=== PATIENT | female | born 1950 | race Caucasian/White ===

== ENCOUNTER 2017-04-23 13:22 | Inpatient (IN) | payer MEDICARE, OTHER ==
[~2017-04-23] VITALS: Ht 162.6 cm; Wt 52.2 kg
[2017-04-23] MEDS ORDERED: DICYCLOMINE HCL 20 MG TABLET PO PRN (15:00)
[2017-04-23] MEDS ORDERED: LOPERAMIDE HCL 2 MG CAPSULE PO PRN ×2 (15:00)
[2017-04-23] MEDS ORDERED: PROMETHAZINE HCL 25 MG TABLET PO PRN (15:00)
[2017-04-23] MEDS ORDERED: ONDANSETRON 4 MG/2 ML VIAL IM PRN (15:00)
[2017-04-23] MEDS ORDERED: LORAZEPAM 1 MG TABLET PO PRN ×2 (15:00)
[2017-04-23] MEDS ORDERED: LORAZEPAM 2 MG/1 ML VIAL IM PRN (15:00)
[2017-04-23] MEDS ORDERED: THIAMINE HCL 200 MG/2 ML VIAL IM ONE ×2 (15:00→16:01)
[2017-04-23] MEDS ORDERED: MAG HYDROX/AL HYDROX/SIMETH 30 ML LIQUID UDC PO PRN (15:00)
[2017-04-23] MEDS ORDERED: MIRALAX 17 GM POWD.PACK PO PRN (15:00)
[2017-04-23] MEDS ORDERED: MAGNESIUM HYDROXIDE 30 ML LIQUID UDC PO PRN (15:00)
[2017-04-23] MEDS ORDERED: ONDANSETRON ODT 4 MG TAB.RAPDIS SL PRN (15:00)
[2017-04-23] MEDS ORDERED: diphenhydrAMINE 50 MG CAPSULE PO PRN (15:00)
--- NOTE | 2017-04-23 15:00 | NUR ---
PREADMISSION Pt 66 y/o female admitted for opiate , etoh, and benzo withdrawal. Pt came from [facility]. Pt states lives at home with . Pt alert and oriented to name and time. Perrla. Respirations even and unlabored. Pt frequently closes eyes and has to be aroused. Skin warm and moist to touch. VS np=184/80 t=98.7 p=80 r=16 O2= 88-90% @RA. Pt was evaluated by MD in admission office, and with new orders for O2 therapy to titrate O2= >/=92%, noted and carried out. Pt not able to provide complete history. Educated pt on unit rules.
--- NOTE | 2017-04-23 15:05 | NUR ---
ADMISSION Pt 66 y/o female admitted for opiate , etoh, and benzo withdrawal. Pt came from [facility]. Pt states lives at home with . Pt alert and oriented to name and time. Perrla. Respirations even and unlabored. Pt appears disheveled and unkempt. Pt frequently closes eyes and has to be aroused. Skin warm and moist to touch. Bruising noted on multiple sites scattered throughout both lower arms and BLE. Not able to assess pt at this time, as pt closes eyes frequently, but arousable to name and light touch. Pt stated ," I felt nauseated", as a response to reason for admission. Pt did not provide the name of her PMD. Pt unable to provide information on when her last sobriety period was. Oriented pt to room and unit. Pt was seen by MD and started on subutex prn and ativan prn. Substance hx: Etoh Vodka oral 1/2 bottle daily for unspecified months. Last drink 1 shot on 04/22/17. Subutex SL 2-3 tabs daily for unspecified months. Last took 04/23/17 1 tab. Ativan po 2 pills 3 days a week for unspecified time. Last took 04/23/17 2 pills. Medical hx: Htn, lower back and left hip chronic pain, left hips surgery ( pt unable to provide date), chrohn's disease Treatment hx: Corinne sweeney 2004 Addendum: 04/23/17 at 1939 by NICK CANNON RN ADDITIONAL Ciwa/ cows deferred. Pt occasionally closes eyes. Addendum: 04/23/17 at 1939 by NICK CANNON RN additional Pt is 1:1 sitter to monitor for safety.
[2017-04-23 16:00] VITALS: BP 130/73
--- NOTE | 2017-04-23 16:00 | NUR ---
CIWA/ COWS DEFERRED Pt in bed with eyes closed resting, but arousable to name. Not able to assess pt at this time. ciwa/cows deferred.
--- NOTE | 2017-04-23 16:00 | NUR ---
CIWA/COWS DEFERRED Ciwa/ cows deferred. Pt in bed with eyes closed resting, but arousable to name.
[2017-04-23] MEDS ORDERED: AZIT250T13 PO (16:02)
[2017-04-23] MEDS ORDERED: LOSA25TA13 PO (16:02)
[2017-04-23] MEDS ORDERED: BUPR1FIL3 SL (16:02)
[2017-04-23] MEDS ORDERED: BENZ-13 PO (16:02)
[2017-04-23] MEDS ORDERED: CLON0.1T PO (16:02)
[2017-04-23] MEDS ORDERED: ACYC400T PO (16:02)
[2017-04-23] MEDS ORDERED: DULO60CA45 PO (16:02)
[2017-04-23] MEDS ORDERED: BACL10TA PO (16:02)
[2017-04-23] MEDS ORDERED: LIDO30AD10 TD (16:02)
[2017-04-23] MEDS ORDERED: ONDA8TAB9 PO (16:02)
[2017-04-23] MEDS ORDERED: TRAZ-144 PO (16:02)
[2017-04-23] MEDS ORDERED: PANT40TA2 PO (16:02)
[2017-04-23] MEDS ORDERED: LACT10SO PO (16:02)
[2017-04-23] MEDS ORDERED: FOLI1TAB16 PO (16:02)
[2017-04-23] MEDS ORDERED: GABA-536 PO (16:02)
[2017-04-23] MEDS ORDERED: BUPRENORPHINE HCL 2 MG TAB.SUBL SL PRN (17:15)
[2017-04-23 17:50] LABS: *AMPHETAMINE, URINE NEGATIVE (NEGATIVE); *BARBITURATE, URINE NEGATIVE (NEGATIVE); *CANNABINOID, URINE NEGATIVE (NEGATIVE); *COCCAINE, URINE NEGATIVE (NEGATIVE); *OPIATE, URINE NEGATIVE (NEGATIVE); *PHENCYCLIDINE SCREEN,URINE NEGATIVE (NEGATIVE)
[2017-04-23 17:58] LABS: BASOPHILS # (AUTO) 0.1 K/uL (0.0-8.0); BASOPHILS % (AUTO) 0.6 % (0.0-2.0); EOSINOPHILS # (AUTO) 0.1 K/uL (0.0-0.7); EOSINOPHILS % (AUTO) 0.6 % (0.0-7.0); HEMATOCRIT 32.3 % (31.2-41.9); HEMOGLOBIN 10.1 g/dL (10.9-14.3); LYMPHOCYTES # (AUTO) 2.4 K/uL (20.0-40.0); LYMPHOCYTES % (AUTO) 16.2 % (20.5-51.5); MEAN CORPUSCULAR HEMOGLOBIN 25.8 uug (24.7-32.8); MEAN CORPUSCULAR HGB CONC 32 g/dL (32.3-35.6); MEAN CORPUSCULAR VOLUME 81.9 fL (75.5-95.3); MONOCYTES # (AUTO) 1.7 K/uL (2.0-10.0); MONOCYTES % (AUTO) 11.6 % (0.0-11.0); NEUTROPHILS # (AUTO) 10.4 K/uL (1.8-8.9); PLATELET COUNT (AUTO) 288 K/uL (179-408); RED BLOOD CELL COUNT(AUTO) 3.94 MIL/uL (3.63-4.92); WHITE BLOOD COUNT (AUTO) 14.6 K/uL (3.8-11.8)
[2017-04-23] MEDS ORDERED: ADAL40PE SUBCUT (17:58)
[2017-04-23 18:09] LABS: ETHANOL < 3 MG/DL (0-0)
[2017-04-23 18:15] LABS: ALANINE AMINOTRANSFERASE 29 U/L (14-59); ALKALINE PHOSPHATASE 218 U/L (50-136); AMYLASE 15 U/L (25-115); ASPARTATE AMINOTRANSFERASE 54 U/L (15-37); BILIRUBIN,TOTAL 0.5 mg/dL (0.2-1.0); CARBON DIOXIDE 33 mmol/L (21-32); CHLORIDE 101 mmol/L (98-107); CREATININE 0.6 mg/dL (0.6-1.3); GLUCOSE 110 mg/dL (74-106); LIPASE 58 U/L (73-393); MAGNESIUM 1.7 mg/dL (1.8-2.4); POTASSIUM 3.7 mmol/L (3.5-5.1); TOTAL PROTEIN, SERUM 6.7 g/dL (6.4-8.2); UREA NITROGEN, BLOOD 7 mg/dL (7-18)
--- NOTE | 2017-04-23 18:30 | NUR ---
NSG ENTRY Dr. Moses notified of cxr results and lab results with new order for IV zosyn ( pharmacy to dose), Mg sulfate 2gm IV, swallow eval in am, sputum culture, NPO status, and CBC BMP in am, noted and carried out.
[2017-04-23] MEDS ORDERED: PIPERACILLIN/TAZOBACTAM/D5W 50 ML IV SCH (18:45)
--- NOTE | 2017-04-23 19:30 | NUR ---
Start of Shift Pt is a 66 year old female admitted for opiate , etoh, and benzo withdrawal. Pt is on a 1:1 for safety. Upon assessment, pt is in room, appears unkempt, disheveled. Pt responds to name and time, however has to be aroused with name and light touch whenever questions are asked. Pt responds to most questions with, "I don't remember", or does not respond at all. Pt closes eyes frequently. Bruising is noted throughout body. Pt is incontinent, wears diapers. VTE 5, SCD pumps in use at bed side. Pt has non-productive cough, chest x-ray completed during days shift indicating pneumonia. Zosyn IV & Mg sulfate 2gm IV ordered. Pt is NPO -swallow evaluation to be done in am. BP 130/85, pulse 87, resp 16, SpO2 97% on 02 running at 2LPM via NC, temp 98.4. Sitter at bedside, safety measures in place, will continue to monitor.
[2017-04-23 20:00] VITALS: BP 130/85
--- NOTE | 2017-04-23 20:00 | NUR ---
COWS/CIWA Deferred d/t pt in bed resting with eyes closed, but arousable to name and light touch, but does not respond to assessment questions that are being asked. Pt falls back to sleep after name is a called. Sitter at bedside, safety measures in place, will continue to monitor.
--- NOTE | 2017-04-23 20:20 | NUR ---
IV/IVF IV started by ER nurse on right lower forearm, 22 G. IV patent, intact and flushing well. Zosyn IV & Mg sulfate 2gm IV started. Sitter at bedside, safety measures in place, will continue to monitor.
[2017-04-23] MEDS: PIPERACILLIN/TAZOBACTAM/D5W 50 ML IV SCH ×2 (20:59→23:51)
[2017-04-23] MEDS: MAGNESIUM SULFATE/D5W 100 ML IV SCH ×2 (21:53→22:30)
[2017-04-23] MEDS: TRAZODONE 50 MG TABLET PO SCH (22:00)
[2017-04-23] MEDS: MAGNESIUM CHLORIDE 64 MG TABLET.SA PO SCH (22:00)
--- NOTE | 2017-04-23 22:00 | NUR ---
Nursing Note Scheduled PO Medications non-administered d/t pt being on NPO status. Pt is scheduled for swallow evaluation tomorrow. MD thomson
[2017-04-24] VITALS: BP 145/80
[2017-04-24] MEDS ORDERED: LORAZEPAM 2 MG/1 ML VIAL IV PRN ×2
--- NOTE | 2017-04-24 | NUR ---
CIWA/COWS deferred d/t pt sleeping, to assess while pt is awake as ordered. BP 145/80, pulse 82, resp 17, Spo2 94% on 02 running at 2LPM via NC, temp 98.[address], will continue to monitor.
[2017-04-24 04:00] VITALS: BP 139/80
--- NOTE | 2017-04-24 04:00 | NUR ---
CIWA/COWS deferred d/t pt sleeping, to assess while pt is awake as ordered. BP 139/80, pulse 80, resp 16, Spo2 94% on 02 running at 2LPM via NC, temp 98.[address], will continue to monitor.
[2017-04-24] MEDS: PIPERACILLIN/TAZOBACTAM/D5W 50 ML IV SCH ×4 (06:16→23:50)
--- NOTE | 2017-04-24 07:10 | NUR ---
End of Shift Pt is a 66 year old female admitted for opiate , etoh, and benzo withdrawal. Pt is on a 1:1 for safety. During shift, pt stayed in room, unkempt, disheveled. Pt responds to name and time, however has to be aroused with name and light touch whenever questions are asked. Pt responds to most questions with, "I don't remember", or does not respond at all. Pt closes eyes frequently and returns back to sleep therefore unable to assess accurate score of CIWA/COWS. IV started by ER nurse on right lower forearm, 22 G. IV patent, intact and flushing well. Zosyn IV & Mg sulfate 2gm IV started. Scheduled PO Medications non-administered d/t pt being on NPO status. Pt is scheduled for swallow evaluation today. Sputum culture ordered, VTE 5, SCD pumps in use at bed side. Pt remains on O2 running at 2LPM via NC. Sitter at bedside, Pt slept for 9 hours, Pt remains on NPO, voids x1 and stool x0. Safety measures in place, endorsed to day shift nurse.
--- NOTE | 2017-04-24 07:45 | NUR ---
START OF SHIFT Endorse rcvd from ongoing nurse, client's room feels stuffy. Client is in bed in a position, a/o to name, place and situation, she presents anxious mood, flat affect, red, teary eyes, flushed face, fine tremors, clammy skin, she has difficulty concentrating. Client reports in a soft, shaky voice; abdominal cramps, feeling of panic, restless legs, nausea, and fatigue. Client is NPO, until seen by ST to assess swallow functioning and safe PO toleration. Hep lock 22G on R forearm. Client is on IV antibiotic therapy Zosyn 3.375mG IV Q6H for PNA. IPCD on and tolerating well. Client is on 1:1 for safety. Encourage client to participate in ADL and to attend group therapy for skills to maintain sober. Client slept 9 hrs. Seizure precautions rendered. Call light within reach.
[2017-04-24 08:07] LABS: CREATININE 0.6 mg/dL (0.6-1.3); POTASSIUM 3.7 mmol/L (3.5-5.1)
[2017-04-24 08:27] VITALS: BP 143/79
[2017-04-24] MEDS ORDERED: MULTIVITAMINS,THERAPEUTIC TABLET PO SCH (09:00)
[2017-04-24] MEDS ORDERED: THIAMINE HCL 100 MG TABLET PO SCH (09:00)
[2017-04-24] MEDS ORDERED: TUBERCULIN,PURIF.PROT.DERIV. 5 TU/0.1 ML TEST ID ONE (09:00)
[2017-04-24] MEDS ORDERED: FOLIC ACID 1 MG TABLET PO SCH (09:00)
[2017-04-24] MEDS ORDERED: hydrALAZINE HCL 20 MG/1 ML VIAL IV PRN (09:30)
[2017-04-24] MEDS ORDERED: IV D5W-0.45% NS 1000 ML BAG IV PRN (10:15)
--- NOTE | 2017-04-24 10:35 | NUR ---
Client refused TB test, stating she just got one not long ago.
[2017-04-24] MEDS: FOLIC ACID 1 MG TABLET PO SCH (10:36)
[2017-04-24] MEDS: MULTIVITAMINS,THERAPEUTIC TABLET PO SCH (10:37)
[2017-04-24] MEDS: MAGNESIUM CHLORIDE 64 MG TABLET.SA PO SCH ×2 (10:37→21:50)
[2017-04-24] MEDS: DULOXETINE 60 MG CAPSULE.DR PO SCH (10:37)
[2017-04-24] MEDS: DOCUSATE SODIUM 250 MG CAPSULE PO SCH (10:37)
--- NOTE | 2017-04-24 10:37 | NUR ---
PRN IV Ativan 2 mg wasted, client was screaming, "Take it out, take it out it's burning." MD and CN notified.
[2017-04-24] MEDS: THIAMINE HCL 100 MG TABLET PO SCH (10:38)
[2017-04-24] MEDS: IV D5 1/2 NS 1000 ML 1,000 ML IV PRN ×2 (10:38→23:50)
--- NOTE | 2017-04-24 10:38 | NUR ---
PRN IV D5% 1/2NS 125mL/hr for hydration. Client tolerating well
[2017-04-24] MEDS ORDERED: LORAZEPAM 1 MG TABLET PO ONE (11:00)
[2017-04-24] MEDS ORDERED: LORAZEPAM 1 MG TABLET PO PRN ×2 (11:15)
[2017-04-24] MEDS: LIDOCAINE 5% PATCH TD SCH (12:05)
[2017-04-24 12:55] VITALS: BP 138/80
[2017-04-24] MEDS: LORAZEPAM 1 MG TABLET PO SCH ×3 (13:33→21:50)
[2017-04-24] MEDS ORDERED: BUPRENORPHINE HCL 2 MG TAB.SUBL SL PRN (14:00)
[2017-04-24] MEDS: IBUPROFEN 400 MG TABLET PO PRN (14:55)
[2017-04-24] MEDS: ACETAMINOPHEN 325 MG TABLET PO PRN (14:55)
--- NOTE | 2017-04-24 14:55 | NUR ---
PRN Tylenol 650mg PO and Motrin 400mg PO administered for SALDANA pain level 7/10, client verbalized that the combination of medication works for her. Call light within reach.
--- NOTE | 2017-04-24 15:44 | NUR ---
Reassess PRN Tylenol 650mg PO and Motrin 400mg, ruchi reports relief from SALDANA pain level 0/10. Call light within reach.
[2017-04-24] MEDS: ACYCLOVIR 400 MG TABLET PO SCH (16:18)
[2017-04-24] MEDS: GABAPENTIN 400 MG CAPSULE PO SCH (16:18)
[2017-04-24 16:55] VITALS: BP 122/76
--- NOTE | 2017-04-24 19:23 | NUR ---
END OF SHIFT Endorsed client to incoming nurse, client is a/o x 4, she needs encouragement to attend group therapy, client remains isolated in her room due to withdrawal symptoms, she continues to present with anxious mood, flat affect, restless legs, fine tremors, and nausea. She continues on 1:1 for safety. D5%1/2ns 125mL/hr RUNNING, client tolerating well. Peripheral line 22G on R forearm intact. She consumed ~25% of meals. PRN Tylenol 650mg PO, Motrin 400mg PO for SALDANA, noted effective. Adequate PO fluid intake 1703mL, void x 1. Last CIWA 15/ COWS 9 @ 1600. Call light within reach.
[2017-04-24 20:00] VITALS: BP 137/76
--- NOTE | 2017-04-24 20:00 | NUR ---
Start of Shift Note Received 66 y/o female px admitted on for medically supervised withdrawals from ETOH, benzo and opiate. Px is on 3 day Ativan taper started 04/24/2017. Px tolerating well. Px has IVF of D5 half NS 1 L running at 125 ml/hr through a peripheral IV line inserted on right forearm. Px is on 1 to 1 for safety and unsteady gait. Px is on bed in long sitting position, eating her dinner. Px stated "My anxiety is 1/10". Px is disoriented to time. Bed on lowest position, and side rails up 2x. We'll continue to monitor.
--- NOTE | 2017-04-24 21:00 | NUR ---
IV site infiltrated Peripheral IV line inserted on right forearm discontinued and taken off due to infiltration. Warm and cold pack applied alternately on the site. We'll continue to monitor.
[2017-04-24] MEDS: TRAZODONE 50 MG TABLET PO SCH (21:50)
--- NOTE | 2017-04-24 23:15 | NUR ---
Peripheral IV line reinserted ER staff reinserted a peripheral IV line on right dorsal hand aseptically 22G with good blood back flow, flushed with 10 cc NS. Px tolerated well. We'll continue to monitor.
--- NOTE | 2017-04-24 23:45 | NUR ---
IVF restarted IVF D5 half NS 1 L started,and running at 125 ml/hr on a peripheral IV line inserted in right dorsal hand. We'll continue to monitor.
[2017-04-25] VITALS: BP 111/71
--- NOTE | 2017-04-25 | NUR ---
IV Zosyn Zosyn 3.375 G in 50 ml D5W IV started, and running for 50 ml/hr as a piggyback for main line IVF D5 half NS 1 L. We'll continue to monitor.
[2017-04-25 04:00] VITALS: BP 120/72
[2017-04-25] MEDS: PIPERACILLIN/TAZOBACTAM/D5W 50 ML IV SCH ×3 (06:00→17:42)
[2017-04-25] MEDS: PANTOPRAZOLE SODIUM 40 MG TABLET.DR PO SCH (06:42)
--- NOTE | 2017-04-25 07:30 | NUR ---
START OF SHIFT Endorse rcvd from ongoing nurse, client is in bed, a/o to name, place and situation, she presents anxious mood, flat affect, flushed face, gross tremors, clammy skin, she has difficulty concentrating. Client reports; abdominal cramps, feeling of panic, restless legs, nausea, and fatigue. Peripheral line 22G on R hand, Zosyn (PNA) running at prescribed rate. IPCD on and tolerating well. Client is on 1:1 for safety. Encourage client to participate in ADL and to attend group therapy for skills to maintain sober. Client slept 2 hrs. Seizure precautions rendered. Call light within reach.
--- NOTE | 2017-04-25 07:33 | NUR ---
End of Shift Note During the shift at 2100, peripheral IV line inserted on right forearm was discontinued and removed due to infiltration. At 2315 ER staff reinserted a peripheral IV line on right dorsal hand 22G aseptically. At 2345, IVF D5 half NS 1L started, running at 125 ml/hr. At 0000, Zosyn 3.375 G in 50 ml D5W hooked as a piggyback running at 50 ml/hr. Pxs oral intake is 300 ml, diaper wet changes 2x, No BM. Slept for intermittently 2 hours. At 0630, px asleep on bed in fowlers position. Last COWS 5 and CIWA 7. Bed on lowest position, and side rails up 2x. We'll continue to monitor. Px endorsed to AM shift nurse.
[2017-04-25 07:49] LABS: BASOPHILS # (AUTO) 0.1 K/uL (0.0-8.0); BASOPHILS % (AUTO) 0.7 % (0.0-2.0); EOSINOPHILS # (AUTO) 0.3 K/uL (0.0-0.7); EOSINOPHILS % (AUTO) 2.7 % (0.0-7.0); HEMATOCRIT 31.6 % (31.2-41.9); LYMPHOCYTES # (AUTO) 2.2 K/uL (20.0-40.0); LYMPHOCYTES % (AUTO) 22.2 % (20.5-51.5); MEAN CORPUSCULAR HGB CONC 32 g/dL (32.3-35.6); MEAN CORPUSCULAR VOLUME 82.4 fL (75.5-95.3); MONOCYTES # (AUTO) 1.5 K/uL (2.0-10.0); MONOCYTES % (AUTO) 15.3 % (0.0-11.0); NEUTROPHILS # (AUTO) 5.8 K/uL (1.8-8.9); NEUTROPHILS % (AUTO) 59.1 % (38.5-71.5); PLATELET COUNT (AUTO) 318 K/uL (179-408); RED BLOOD CELL COUNT(AUTO) 3.83 MIL/uL (3.63-4.92)
[2017-04-25 07:55] LABS: WHITE BLOOD COUNT (AUTO) 9.8 K/uL (3.8-11.8)
[2017-04-25 07:58] LABS: CREATININE 0.6 mg/dL (0.6-1.3); MAGNESIUM 1.7 mg/dL (1.8-2.4); PHOSPHOROUS 4.3 mg/dL (2.5-4.9)
[2017-04-25 08:06] LABS: HEPATITIS B SURFACE AG Negative (Negative)
[2017-04-25] MEDS: MULTIVITAMINS,THERAPEUTIC TABLET PO SCH (08:14)
[2017-04-25] MEDS: DULOXETINE 60 MG CAPSULE.DR PO SCH (08:14)
[2017-04-25] MEDS: FOLIC ACID 1 MG TABLET PO SCH (08:14)
[2017-04-25] MEDS: DOCUSATE SODIUM 250 MG CAPSULE PO SCH (08:14)
[2017-04-25] MEDS: GABAPENTIN 400 MG CAPSULE PO SCH ×3 (08:14→17:42)
[2017-04-25] MEDS: MAGNESIUM CHLORIDE 64 MG TABLET.SA PO SCH ×2 (08:15→21:44)
[2017-04-25] MEDS: ACYCLOVIR 400 MG TABLET PO SCH ×3 (08:15→17:42)
[2017-04-25] MEDS: LIDOCAINE 5% PATCH TD SCH (08:15)
[2017-04-25] MEDS: LORAZEPAM 1 MG TABLET PO SCH ×3 (08:15→21:44)
[2017-04-25] MEDS: THIAMINE HCL 100 MG TABLET PO SCH (08:15)
[2017-04-25] MEDS: CLONIDINE HCL 0.1 MG TABLET PO PRN (08:30)
--- NOTE | 2017-04-25 08:30 | NUR ---
PRN Clonidine 0.1mg for BP 181/97. Call light within reach
[2017-04-25 08:35] VITALS: BP 181/97
[2017-04-25] MEDS ORDERED: PANTOPRAZOLE SODIUM 40 MG TABLET.DR PO SCH (09:00)
[2017-04-25 09:19] LABS: EOSINOPHILS % (MANUAL) 3 % (0-8); LYMPHOCYTES % (MANUAL) 21 % (20-40); MONOCYTES % (MANUAL) 11 % (2-10); MYELOCYTES % 1 % (0-0); NEUTROPHILS % (MANUAL) 64 % (42-75)
--- NOTE | 2017-04-25 09:30 | NUR ---
Reassess PRN Clonidine decreased BP156/86.
[2017-04-25] MEDS: IV D5 1/2 NS 1000 ML 1,000 ML IV PRN (10:23)
--- NOTE | 2017-04-25 10:23 | NUR ---
PRN IV D5% 1/2NS 125mL/hr for hydration. Client tolerating well
[2017-04-25 12:55] VITALS: BP 177/95
[2017-04-25] MEDS ORDERED: hydrALAZINE HCL 25 MG TABLET PO ONE (13:00)
--- NOTE | 2017-04-25 13:09 | NUR ---
One time Hydralazine 25mg PO for BP 177/95.
[2017-04-25] MEDS ORDERED: hydrALAZINE HCL 25 MG TABLET PO PRN (14:00)
[2017-04-25] MEDS ORDERED: HUMIRA 40MG/0.8ML SQ SCH (14:00)
[2017-04-25] MEDS ORDERED: MAGNESIUM OXIDE 400 MG TABLET PO ONE (14:00)
[2017-04-25] MEDS ORDERED: hydrALAZINE HCL 25 MG TABLET PO SCH (14:00)
[2017-04-25] MEDS ORDERED: POTASSIUM CHLORIDE 20 MEQ TAB.PRT.SR PO ONE ×3 (14:00→18:00)
--- NOTE | 2017-04-25 14:09 | NUR ---
Reassess One time Hydralazine 25mg decreased BP 131/89
[2017-04-25 16:55] VITALS: BP 122/75
--- NOTE | 2017-04-25 19:26 | NUR ---
END OF SHIFT Endorsed client to incoming nurse, client is a/o x 3, she needs encouragement to attend group therapy, client remains isolated in her room due to withdrawal symptoms, she continues to present with anxious mood, flat affect, restless legs, gross tremors, and nausea. She continues on 1:1 for safety. D5%1/2ns 75mL/hr running, client tolerating well. Peripheral line 22G on R hand intact. She consumed ~25% of meals. PRN Clonidine 0.1mg for BP 181/97, decreased BP156/86. One time Hydralazine 25mg PO for BP 177/95, decreased to 131/89. Adequate PO fluid intake 1955mL, void x 1. Last CIWA 17/ COWS 11 @ 1600. Call light within reach.
--- NOTE | 2017-04-25 19:30 | NUR ---
Start of Shift Note Received 66 y/o female rogers, admitted on 04/23/2017 for medically supervised withdrawals from ETOH, Opiate and Benzo. Px appears weak. Px is on O2 inhalation at 3 LPM via NC. Px has IVF of D5 half NS running for 75 cc/hr via peripheral IV line inserted on right dorsal hand. Px stated that she just ate 2 bites of her dinner. Few drinks and dinner plate are still on the bed side table. Px verbalized "I can't sleep well, and my anxiety is 6/10 with body aches 5/10". VS as follows, BP= 138/98, KS= 88, RR= 18, O2sat= 96% and T= 99.9. Px is still on 1 to 1 for safety. Last reported COWS is 11 and CIWA 17 from AM shift nurse. Bed on lowest position, and side rails up 2x. We'll continue to monitor.
[2017-04-25 20:00] VITALS: BP 138/98
[2017-04-25] MEDS: ACETAMINOPHEN 325 MG TABLET PO PRN (20:10)
--- NOTE | 2017-04-25 20:10 | NUR ---
Tylenol PRN Tylenol 325 mg/tab, 2 tabs given PO as PRN for T= 99.9 and body aches. We'll continue to monitor.
[2017-04-25] MEDS: TRAZODONE 50 MG TABLET PO SCH (21:44)
[2017-04-26] VITALS (7 sets, daily range): BP systolic 120–173; BP diastolic 76–92
[2017-04-26] MEDS: PIPERACILLIN/TAZOBACTAM/D5W 50 ML IV SCH ×4 (00:07→17:19)
[2017-04-26] MEDS: IV D5 1/2 NS 1000 ML 1,000 ML IV PRN ×2 (01:24→16:39)
--- NOTE | 2017-04-26 01:24 | NUR ---
IVF IVF D5 half NS 1 L hooked as follow up running at 75 ml/hr to a peripheral IV line inserted on right dorsal hand. We'll continue to monitor.
--- NOTE | 2017-04-26 01:54 | NUR ---
PRN Benadryl Px was given Benadryl 50 mg/cap, 1 cap PO for insomnia. We'll continue to monitor.
[2017-04-26] MEDS ORDERED: LORAZEPAM 1 MG TABLET PO ONE (02:30)
--- NOTE | 2017-04-26 02:38 | NUR ---
1x dose Ativan Px was hallucinating and disoriented to place and person. Px stated "Please let me go out of this bed and let me go to the next door with my drinking buddies to drink some whiskey". Px added "Why are you keeping me here hours and hours?". Px was reoriented and redirected. Ativan 1x dose of 2 mg given PO for CIWA 15. We'll continue to monitor.
[2017-04-26] MEDS: PANTOPRAZOLE SODIUM 40 MG TABLET.DR PO SCH (06:16)
--- NOTE | 2017-04-26 07:10 | NUR ---
End of Shift Note During the shift at 2009, Tylenol 650 mg given PO for T=99.9. Temperature rechecked after an hour, and it was T= 98.5. At 0124, D5 half NS 1 L hooked as follow up IVF. At 0154, Benadryl 50 mg given PO for insomnia but was not so effective. At 0238, Ativan 1 mg/tab, 2 tabs given PO as 1x dose for CIWA of 15 due to hallucinations, disorientations and agitation. It was effective. Px's oral intake is 250 ml, 3x diaper changes, No BM. Slept intermittently for 3 hours. Last COWS 7 and CIWA 9. At 0630, px is awake on bed in fowlers position. Px is still on 1 to 1 for safety. Px's bed on lowest position, and side rails up 2x. We'll continue to monitor. Px endorsed to Am shift nurse.
[2017-04-26 07:43] LABS: CREATININE 0.5 mg/dL (0.6-1.3); MAGNESIUM 1.9 mg/dL (1.8-2.4); PHOSPHOROUS 3.8 mg/dL (2.5-4.9)
[2017-04-26 07:47] LABS: BASOPHILS # (AUTO) 0.1 K/uL (0.0-8.0); BASOPHILS % (AUTO) 0.8 % (0.0-2.0); EOSINOPHILS # (AUTO) 0.2 K/uL (0.0-0.7); EOSINOPHILS % (AUTO) 2.7 % (0.0-7.0); HEMATOCRIT 34.6 % (31.2-41.9); HEMOGLOBIN 10.9 g/dL (10.9-14.3); LYMPHOCYTES # (AUTO) 2.1 K/uL (20.0-40.0); LYMPHOCYTES % (AUTO) 24.5 % (20.5-51.5); MEAN CORPUSCULAR HEMOGLOBIN 26.1 uug (24.7-32.8); MEAN CORPUSCULAR HGB CONC 32 g/dL (32.3-35.6); MEAN CORPUSCULAR VOLUME 82.6 fL (75.5-95.3); MONOCYTES # (AUTO) 1.4 K/uL (2.0-10.0); MONOCYTES % (AUTO) 16.6 % (0.0-11.0); NEUTROPHILS # (AUTO) 4.7 K/uL (1.8-8.9); NEUTROPHILS % (AUTO) 55.4 % (38.5-71.5); PLATELET COUNT (AUTO) 379 K/uL (179-408); RED BLOOD CELL COUNT(AUTO) 4.19 MIL/uL (3.63-4.92); WHITE BLOOD COUNT (AUTO) 8.5 K/uL (3.8-11.8)
--- NOTE | 2017-04-26 07:50 | NUR ---
Received endorsement from PM shift. Pt admitted for [facility] dependency,Subutex and ativan. Pt awaked disoriented, confused, oriented x2. Pt in bed with tech at bedside, Pt 1:1 for safety. Pt weak bilateral lower extremities, needs assistance with transfers. Uses wheel chair. Pt incontinent, has diaper on. D5 1/2 half NS 1 L hooked as follow up IVF. Pt on O2 3L n/c. sate 95%, respirations even and unlabored. Pt FULL CODE, ALLERGY CLINDAMYCIN. 2 gm sodium diet. At 0600 last COWS 7 and CIWA 9. Pt's bed on lowest position, and side rails up 2x. We'll continue to monitor.
[2017-04-26] MEDS: ACYCLOVIR 400 MG TABLET PO SCH ×3 (08:29→16:43)
[2017-04-26] MEDS: GABAPENTIN 400 MG CAPSULE PO SCH ×3 (08:29→16:43)
[2017-04-26] MEDS: LIDOCAINE 5% PATCH TD SCH (08:29)
[2017-04-26] MEDS: LORAZEPAM 1 MG TABLET PO SCH ×2 (08:29→20:49)
[2017-04-26] MEDS: FOLIC ACID 1 MG TABLET PO SCH (08:30)
[2017-04-26] MEDS: MULTIVITAMINS,THERAPEUTIC TABLET PO SCH (08:30)
[2017-04-26] MEDS: DULOXETINE 60 MG CAPSULE.DR PO SCH (08:30)
[2017-04-26] MEDS: THIAMINE HCL 100 MG TABLET PO SCH (08:30)
[2017-04-26] MEDS: MAGNESIUM CHLORIDE 64 MG TABLET.SA PO SCH ×2 (08:30→20:49)
[2017-04-26] MEDS: DOCUSATE SODIUM 250 MG CAPSULE PO SCH (08:30)
[2017-04-26 10:35] LABS: EOSINOPHILS % (MANUAL) 3 % (0-8); LYMPHOCYTES % (MANUAL) 24 % (20-40); MONOCYTES % (MANUAL) 15 % (2-10); NEUTROPHILS % (MANUAL) 58 % (42-75)
--- NOTE | 2017-04-26 10:40 | NUR ---
Client prompted client to come to all groups/activities today to engage with others and not be isolated in his room. Therapist encouraged client to try to share his feeling/thoughts so he does not build up feelings/thoughts which may negatively impact him. Therapist encouraged client to also meet with therapist if they feel they cannot cope with going to group so they can have one/one therapy session to help process feelings/thoughts.
[2017-04-26] MEDS: IBUPROFEN 400 MG TABLET PO PRN (11:09)
--- NOTE | 2017-04-26 11:11 | NUR ---
PRN Ibuprofen 400 mg PO, pt c/o pain back, ribs, hip #6-09/02.
--- NOTE | 2017-04-26 12:10 | NUR ---
Reassess- Ibuprofen effective. Pt states pain decreased to #4-5/10. Pt has chronic pain. Pt working with physical therapy and tolerating well.
--- NOTE | 2017-04-26 16:03 | NUR ---
PRN Hydralazine 25 mg po for BP 173/83, HR 79
--- NOTE | 2017-04-26 16:57 | NUR ---
Reassess Hydralazine, BP improved 128/76, HR 101. Medication effective.
--- NOTE | 2017-04-26 18:30 | NUR ---
End of shift- Pt admitted for EOTH, Subutex and ativan dependency. Pt disoriented, confused, oriented x2. Pt 1:1 for safety. Pt weak bilateral lower extremities, needs assistance with transfers. Pt had PT session today. Ambulates with walker and assistance. Gait unsteady. Needs assistance at all times. Pt incontinent at times, has diaper on. Pt got up to toilet with assist to void. IV D5 1/2 half NS at 75cc/hour. IV site patent, #22 jozef on right forearm. Pt on O2 3L n/c. sat 95%, respirations even and unlabored. Occasional cough. Pt c/o chronic pain in hips and ribs. Elevated BP, PRN medications administered per MD orders. Pt FULL CODE, ALLERGY CLINDAMYCIN. 2 gm sodium diet. At 1600 last COWS 8 and CIWA 9. Pt had poor PO liquid intake 355 ml, IV Fluids 900 ml, voids X 5, no BM. Pt's bed on lowest position, and side rails up 2x. will endorse to next shift.
--- NOTE | 2017-04-26 19:30 | NUR ---
START OF SHIFT Received 66 year old female. Pt is alert and oriented x3. Pt is noted to be anxious, confused and drowsy. Pt continues on 1:1 for unsteady gait and confusion. Per endorsement, pt was seen by PT today. Pts CXR impression: early pneumonia or atelectasis. MD aware. IV fluids were discontinued. She received PRN Hydralazine for increased BP. Pt noted with IV on right forearm 22 gauge, patent and flushing well. Pt noted with productive cough, safety measures in place. Will continue to monitor.
[2017-04-26] MEDS: TRAZODONE 50 MG TABLET PO SCH (20:50)
--- NOTE | 2017-04-26 22:15 | NUR ---
BEHAVIOR NOTE Called to room by DIVERSITY SPECIALIST. Pt was noted to be confused, attempting to get out of bed and was demanding to sleep in her room upstairs. Reoriented pt to place and explained that she is in detox and has been in the same room for a few days. DIVERSITY SPECIALIST took pt around unit via wheelchair, primary nurse gave pt a tour of the unit. Pt appeared to be more calm. Encouraged pt to get some rest, pt verbalized understanding. Assisted pt safely back to bed, side rails up x2. Will continue to monitor.
[2017-04-27] VITALS: BP 152/92
[2017-04-27] MEDS: CLONIDINE HCL 0.1 MG TABLET PO PRN (00:13)
--- NOTE | 2017-04-27 00:13 | NUR ---
PRN CLONIDINE Pt noted with increased anxiety and agitation and continuously tried to get out of bed. PRN Clonidine administered as ordered. Safety measures in place. Will monitor effectiveness.
[2017-04-27] MEDS: PIPERACILLIN/TAZOBACTAM/D5W 50 ML IV SCH ×5 (00:18→23:53)
--- NOTE | 2017-04-27 01:13 | NUR ---
PRN REASSESSMENT PRN medication effective. Pt lying in bed with eyes closed noted to be asleep. Respirations 16. Safety measures in place. Will monitor.
--- NOTE | 2017-04-27 04:00 | NUR ---
0400 VS/COWS pt awakened, responded with "I'm sleeping, why did you wake me up"? VS refused, COWS deferred, respirations 16 and unlabored. Addendum: 04/27/17 at 0717 by ABI LEMUS RN error in charting. wrong pt
[2017-04-27 04:19] VITALS: BP 157/87
[2017-04-27] MEDS: PANTOPRAZOLE SODIUM 40 MG TABLET.DR PO SCH (06:07)
--- NOTE | 2017-04-27 07:17 | NUR ---
END OF SHIFT Pt is a 66 year old female. Pt is alert and oriented to person. She was noted with episodes of anxiety, agitation and confusion during the shift. She continues on 1:1 for unsteady gait and confusion. Pts IV on right hand 22 gauge is patent and flushing well. She received PRN Clonidine for anxiety. She slept a total of 3 hrs, Intake:648mL, Void: x7, BM:0, COWS:10, CIWA: 11. Breathing even and unlabored, safety measures in place. Endorsed to AM shift.
--- NOTE | 2017-04-27 07:39 | NUR ---
Start of shift- Pt admitted for EOTH, Subutex and ativan dependency. Pt disoriented, confused, oriented x2. Pt 1:1 for safety. Pt weak bilateral lower extremities, needs assistance with transfers. Ambulates with assistance. Gait unsteady. Pt incontinent at times, has diaper on. Pt got up to toilet with assist to void. IV patent, #22 jozef on right forearm. Pt on O2 3L n/c. sat 95%, respirations even and unlabored. Occasional cough. Pt c/o chronic pain in hips and ribs. Pt FULL CODE, ALLERGY CLINDAMYCIN. 2 gm sodium diet. At 0600 last COWS 10 and CIWA 11. Pt's bed on lowest position, and side rails up 2x. will continue to monitor. Addendum: 04/27/17 at 1732 by Tish Frye RN IV right hand
[2017-04-27 07:51] LABS: CREATININE 0.5 mg/dL (0.6-1.3); MAGNESIUM 1.9 mg/dL (1.8-2.4); PHOSPHOROUS 4.4 mg/dL (2.5-4.9); POTASSIUM 3.9 mmol/L (3.5-5.1)
[2017-04-27 07:58] LABS: BASOPHILS # (AUTO) 0.1 K/uL (0.0-8.0); BASOPHILS % (AUTO) 1.1 % (0.0-2.0); EOSINOPHILS # (AUTO) 0.2 K/uL (0.0-0.7); EOSINOPHILS % (AUTO) 2.6 % (0.0-7.0); HEMATOCRIT 32.5 % (31.2-41.9); HEMOGLOBIN 10.4 g/dL (10.9-14.3); LYMPHOCYTES # (AUTO) 1.8 K/uL (20.0-40.0); LYMPHOCYTES % (AUTO) 18.9 % (20.5-51.5); MEAN CORPUSCULAR HGB CONC 32 g/dL (32.3-35.6); MEAN CORPUSCULAR VOLUME 81.6 fL (75.5-95.3); MONOCYTES # (AUTO) 1.3 K/uL (2.0-10.0); NEUTROPHILS # (AUTO) 6.1 K/uL (1.8-8.9); NEUTROPHILS % (AUTO) 63.4 % (38.5-71.5); PLATELET COUNT (AUTO) 337 K/uL (179-408); RED BLOOD CELL COUNT(AUTO) 3.99 MIL/uL (3.63-4.92); WHITE BLOOD COUNT (AUTO) 9.5 K/uL (3.8-11.8)
[2017-04-27 08:00] VITALS: BP 144/82
[2017-04-27] MEDS: ACYCLOVIR 400 MG TABLET PO SCH ×3 (08:38→16:28)
[2017-04-27] MEDS: MAGNESIUM CHLORIDE 64 MG TABLET.SA PO SCH ×2 (08:38→20:05)
[2017-04-27] MEDS: LIDOCAINE 5% PATCH TD SCH (08:38)
[2017-04-27] MEDS: MULTIVITAMINS,THERAPEUTIC TABLET PO SCH (08:38)
[2017-04-27] MEDS: DOCUSATE SODIUM 250 MG CAPSULE PO SCH (08:38)
[2017-04-27] MEDS: DULOXETINE 60 MG CAPSULE.DR PO SCH (08:39)
[2017-04-27] MEDS: FOLIC ACID 1 MG TABLET PO SCH (08:39)
[2017-04-27] MEDS: THIAMINE HCL 100 MG TABLET PO SCH (08:39)
[2017-04-27] MEDS: GABAPENTIN 400 MG CAPSULE PO SCH ×3 (08:39→16:28)
[2017-04-27 12:00] VITALS: BP 115/73
[2017-04-27] MEDS: ENOXAPARIN SODIUM 40 MG/0.4 ML DISP.SYRIN SQ SCH (12:41)
[2017-04-27] MEDS: BOOST PLUS 237 ML LIQUID (RICH CHOCOLATE) PO SCH ×2 (14:30→17:46)
[2017-04-27 16:00] VITALS: BP 125/80
--- NOTE | 2017-04-27 18:36 | NUR ---
End of shift- Pt admitted for EOTH, Subutex and ativan dependency. Periods of disorientation and hallucinations, or periods of orientation x3. Pt 1:1 for safety. Ambulates with assistance. Gait unsteady. Pt incontinent at times, occasionally gets to toilet with assist to void. IV patent, #22 jozef on right hand. Pt on O2 3L n/c. sat 95%, respirations even, SOB intermittently, non-productive cough. Pt c/o chronic pain in back, hips and ribs. Pt FULL CODE, ALLERGY CLINDAMYCIN. 2 gm sodium diet. Appetite poor, needs encouragement, refused or only eats %10 of meals. Boost is ordered with each meal. PO fluid intake 600, IV fluid 100, voids 7, BM X4. At 1600 last COWS 7 and CIWA 11. Safety measures in place. Pt's bed on lowest position, and side rails up 2x. Will endorse to PM shift.
[2017-04-27] MEDS ORDERED: FUROSEMIDE 20 MG/2 ML VIAL IV ONE (18:45)
--- NOTE | 2017-04-27 19:15 | NUR ---
Start of Shift Patient Received. Patient is in her bed, awake, alert and verbally responsive. Patient continues on O2 via NC on 3 liters. Breathing noted to be even and shallow. Episodes of coughing noted. Patient remains on 1:1 for unsteady gait. Per endorsement, patient completed an Ativan taper and is currently receiving PRN medications for increased signs and symptoms of withdrawal. Patient is currently receiving IV ATB therapy of Zosyn Q6H for PNA. IV site is a 22 gauge to the right hand and is noted to be patent, intact, with no infiltration noted. Patient continues on 3 liters of O2 with a non productive cough noted. Patient complains of chronic pain to back, hips, and ribs. Patient is currently following a 2gm sodium diet and appetite is noted to be poor, needs encouragement, with new orders for Boost supplements. Patient was also started on Lovenox for VTE score of 5. Patient is also started on SCD pumps and is compliant with pumps. Patient is noted with episodes of incontinence and is noted with occasional assists to toilet. Last noted CIWA noted to be 11 and COWS 7. 1:1 remains at bedside for assistance. Will continue plan of care as ordered.
[2017-04-27 20:03] VITALS: BP 118/63
[2017-04-27] MEDS: TRAZODONE 50 MG TABLET PO SCH (20:05)
[2017-04-27] MEDS: IBUPROFEN 400 MG TABLET PO PRN (20:05)
--- NOTE | 2017-04-27 20:10 | NUR ---
PRN Medication Administration Patient is noted verbalizing increased pain 7/10 to right lateral side due to increased coughing. Patient also noted with episode of Diarrhea. patient was able to ambulate to the restroom with one person assist minimal assistance needed. PRN Motrin and PRN Imodium administered with routine medications. Will continue to monitor.
--- NOTE | 2017-04-27 21:10 | NUR ---
PRN Medication Reassessment Patient is noted in bed sleeping. Breathing even and non labored. Patient continues on O2 via nasal canula. No episodes of coughing noted while sleeping. No restlessness or discomfort noted. No facial grimacing noted. No episodes of loose stool noted. PRN Imodium and Motrin noted to be effective. Will continue to monitor.
[2017-04-28 00:24] VITALS: BP 116/69
[2017-04-28 04:07] VITALS: BP 117/70
[2017-04-28] MEDS: PANTOPRAZOLE SODIUM 40 MG TABLET.DR PO SCH (06:19)
[2017-04-28] MEDS: PIPERACILLIN/TAZOBACTAM/D5W 50 ML IV SCH ×3 (06:20→17:03)
--- NOTE | 2017-04-28 07:16 | NUR ---
End of Shift Patient is in bed sleeping but easily aroused to verbal stimuli. Patient remains on O2 at 3 liters via NC. Breathing even and non labored. Patient is noted to be alert and oriented x3. Patient is noted with episodes of non-productive cough. Patient completed a modified Ativan taper and is currently receiving PRN medications for increased signs and symptoms of withdrawal. Patient is currently receiving IV ATB therapy of Zosyn Q6H for PNA. IV site is a 22 gauge to the right hand and is noted to be patent, intact, with no infiltration noted. Patient complains of chronic pain to back, hips, and ribs. PRN Motrin administered for increased pain 7/10 with medication noted to be effective. Patient also noted with episode of loose stool PRN Imodium administered with medication noted to be effective. No further episodes of loose stool noted. Patient was able to ambulate to restroom with minimal assistance needed. No episodes of incontinence noted. Last noted CIWA 13 and COWS 8. All needs attended to promptly. Will endorse to continue plan of care as ordered.
[2017-04-28 07:26] LABS: BASOPHILS # (AUTO) 0.1 K/uL (0.0-8.0); BASOPHILS % (AUTO) 1.4 % (0.0-2.0); EOSINOPHILS # (AUTO) 0.3 K/uL (0.0-0.7); EOSINOPHILS % (AUTO) 3.1 % (0.0-7.0); HEMATOCRIT 33.8 % (31.2-41.9); HEMOGLOBIN 10.7 g/dL (10.9-14.3); LYMPHOCYTES # (AUTO) 2.3 K/uL (20.0-40.0); LYMPHOCYTES % (AUTO) 27.8 % (20.5-51.5); MEAN CORPUSCULAR HEMOGLOBIN 25.9 uug (24.7-32.8); MEAN CORPUSCULAR HGB CONC 32 g/dL (32.3-35.6); MEAN CORPUSCULAR VOLUME 81.8 fL (75.5-95.3); MONOCYTES # (AUTO) 1.2 K/uL (2.0-10.0); MONOCYTES % (AUTO) 14.5 % (0.0-11.0); NEUTROPHILS # (AUTO) 4.5 K/uL (1.8-8.9); NEUTROPHILS % (AUTO) 53.2 % (38.5-71.5); PLATELET COUNT (AUTO) 382 K/uL (179-408); RED BLOOD CELL COUNT(AUTO) 4.14 MIL/uL (3.63-4.92); WHITE BLOOD COUNT (AUTO) 8.4 K/uL (3.8-11.8)
[2017-04-28 07:30] LABS: CREATININE 0.6 mg/dL (0.6-1.3); PHOSPHOROUS 4.3 mg/dL (2.5-4.9); POTASSIUM 3.4 mmol/L (3.5-5.1)
--- NOTE | 2017-04-28 07:58 | NUR ---
START OF SHIFT: PT IS LAYING IN BED A/O X4. SHE PRESENTS WITH IRRITABLE MOOD AND CONGRUENT AFFECT. SHE STATES "I WANT TO GO HOME,I MISS MY ".OFFERED SUPPORT. SHE C/O LOWER BACK AND RIGHT HIP PAIN 5/10 ON PAIN SCALE AND STATES IT IS CHRONIC. 02 VIA NC @ 3 L RESPIRATIONS 18. NO SOB NOTED. PRN ATIVAN AVAILABLE TO MANAGE S/S OF W/D CIWA 6. WILL MEDICATE ORDERED WITH AM MEDS. SCDS IN PLACE FOR HIGH VTE SCORE. 1:1 SITTER AT BEDSIDE FOR UNSTEADY GAIT. BED LOCKED AND IN LOWEST POSITION. PATHWAY TO BATHROOM CLEAR TO PREVENT FALLS. SL TO R HAND TO ADMINISER ZOSYN ORDERED FOR PNEUMONIA. WILL CONTINUE TO MONITOR AND PROVIDE SAFE AND SUPPORTIVE ENVIRONMENT.
[2017-04-28 08:00] VITALS: BP 122/78
[2017-04-28] MEDS: MULTIVITAMINS,THERAPEUTIC TABLET PO SCH (08:16)
[2017-04-28] MEDS: FOLIC ACID 1 MG TABLET PO SCH (08:16)
[2017-04-28] MEDS: THIAMINE HCL 100 MG TABLET PO SCH (08:16)
[2017-04-28] MEDS: DULOXETINE 60 MG CAPSULE.DR PO SCH (08:16)
[2017-04-28] MEDS: MAGNESIUM CHLORIDE 64 MG TABLET.SA PO SCH ×2 (08:16→20:02)
[2017-04-28] MEDS: DOCUSATE SODIUM 250 MG CAPSULE PO SCH ×2 (08:16→08:22)
[2017-04-28] MEDS: GABAPENTIN 400 MG CAPSULE PO SCH ×3 (08:17→16:12)
[2017-04-28] MEDS: ACYCLOVIR 400 MG TABLET PO SCH ×3 (08:17→16:11)
[2017-04-28] MEDS: ENOXAPARIN SODIUM 40 MG/0.4 ML DISP.SYRIN SQ SCH (08:19)
[2017-04-28] MEDS: LIDOCAINE 5% PATCH TD SCH (08:20)
[2017-04-28] MEDS: BOOST PLUS 237 ML LIQUID (RICH CHOCOLATE) PO SCH ×2 (08:20→16:12)
[2017-04-28] MEDS: IBUPROFEN 400 MG TABLET PO PRN ×2 (08:58→20:02)
--- NOTE | 2017-04-28 09:04 | NUR ---
[facility] HELD PT STATES SHE HAD RECENT LOOSE STOOLS. SHE STATES SHE DOES NOT WANT IMODIUM. SHE C/O R HIP PAIN 5/10 ON SCALE AND PRN MOTRIN ADMINISTERED. PRN ZOFRAN ALSO GIVEN FOR REPORTED NAUSEA. SHE STATES SHE FEELS ANXIOUS WELL BUT STATES SHE DOES NOT WANT PRN ATIVAN THAT IS AVAILABLE. WILL MONITOR EFFECTIVENESS OF PRN MEDS.
--- NOTE | 2017-04-28 10:00 | NUR ---
PT STATES ZOFRAN WAS EFFECTIVE IN RELIEVING NAUSEA. SHE STATES MOTRIN WAS EFFECTIVE IN RELIEVING BACK PAIN. PAIN NOW 2/10 ON SCALE.
[2017-04-28] MEDS ORDERED: POTASSIUM CHLORIDE 20 MEQ TAB.PRT.SR PO ONE (11:45)
[2017-04-28 12:00] VITALS: BP 139/75
[2017-04-28] MEDS: CLONIDINE HCL 0.1 MG TABLET PO PRN (15:24)
--- NOTE | 2017-04-28 15:25 | NUR ---
PRN CLONIDINE GIVEN FOR REPORTED ANXIETY AND AGITATION. WILL MONITOR EFFECTIVENESS.
[2017-04-28 16:00] VITALS: BP 139/75
--- NOTE | 2017-04-28 16:25 | NUR ---
PT STATES THE CLONIDINE WAS EFFECTIVE IN RELIEVING ANXIETY.
[2017-04-28] MEDS ORDERED: BENZOCAINE/MENTH/CETYLPYRD LOZENGE MM PRN (16:45)
[2017-04-28] MEDS ORDERED: NICOTINE 14 MG/24HR PATCH TD PRN (16:45)
[2017-04-28] MEDS: GUAIFENESIN LA 600 MG TABLET.SA PO PRN (17:03)
--- NOTE | 2017-04-28 19:00 | NUR ---
Start of Shift Patient Received. Patient is in bed, awake, alert and verbally responsive. Patient continues on 1:1 for safety and O2 at 3 liters via NC. Breathing is even and non labored. Per endorsement, patient is alert and oriented x3 with no episodes of confusion noted. IV ATB Therapy of Zosyn continues for PNA with a non productive cough noted. IV site is a 22 gauge to the right hand and is noted to be patent, intact, with no infiltration noted. Patient complains of chronic pain to back, hips, and ribs. Patient was supplemented with KDUR x1 and tolerated well. Patient was also started on PRN Mucinex for increased cough and also started on nicotine patch for smoking cessation. Patch is located to the left shoulder. Last noted CIWA 6 and COWS 6. All needs attended to promptly. Will continue plan of care as ordered.
--- NOTE | 2017-04-28 19:02 | NUR ---
END OF SHIFT: PT SPENT MOST OF SHIFT IN BED IN ROOM.1:1 SITTER AT BEDSIDE FOR UNSTEADY GAIT. SHE C/O ANXIETY AND SOME NAUSEA THIS AM. AND IT WAS RELIEVED BY ZOFRAN. SHE WAS GIVEN CLONIDINE FOR ANXIETY THIS AFTERNOON PRN WHICH WAS EFFECTIVE. IV ZOSYN CONTINUES SCHEDULED. LAST CIWA 6. ATIVAN TAPER COMPLETED. SHE IS EASILY AGITATED AND IRRITABLE AT TIMES. OBTAINED ORDER FOR MUCINEX AND NICOTINE PATCH. ADMINISTERED BOTH ORDERED. WILL PASS SHIFT REPORT TO ONCOMING NIGHT NURSE.
[2017-04-28 20:00] VITALS: BP 103/69
[2017-04-28] MEDS: TRAZODONE 50 MG TABLET PO SCH (20:02)
--- NOTE | 2017-04-28 20:05 | NUR ---
PRN Medication Administration Patient is noted verbalizing increased pain of 7/10 due to right lateral chest. PRN Motrin administered with routine medications. Will continue to monitor.
[2017-04-28] MEDS ORDERED: IBUPROFEN 600 MG TABLET PO PRN (20:15)
--- NOTE | 2017-04-28 21:00 | NUR ---
PRN Medication Reassessment Patient is noted in bed sleeping. Breathing even and non labored. patient was given PRN Motrin for pain. No facial grimacing noted. No restlessness noted. PRN Motrin noted to be effective. Will continue to monitor.
[2017-04-28] MEDS: METHOCARBAMOL 750 MG TABLET PO PRN (23:25)
--- NOTE | 2017-04-28 23:27 | NUR ---
PRN Medication Administration Patient is noted verbalizing increased body aches and pain to the right hip 10/03. PRN Robaxin administered. will continue to monitor.
[2017-04-29 00:15] VITALS: BP 99/58
[2017-04-29] MEDS: PIPERACILLIN/TAZOBACTAM/D5W 50 ML IV SCH ×4 (00:21→12:31)
[2017-04-29] MEDS ORDERED: NICO-671 TD (00:23)
[2017-04-29] MEDS ORDERED: METH-406 PO (00:23)
--- NOTE | 2017-04-29 00:30 | NUR ---
PRN Medication Reassessment Patient is noted in bed sleeping. Breathing even and non labored. No Restlessness or facial grimacing noted. PRN Robaxin noted to be effective. Will continue to monitor.
[2017-04-29 04:12] VITALS: BP 122/72
[2017-04-29] MEDS: PANTOPRAZOLE SODIUM 40 MG TABLET.DR PO SCH (06:13)
--- NOTE | 2017-04-29 06:17 | NUR ---
PRN Medication Administration Patient noted awake and verbalizing increased pain to right hip and lower back. PRN Motrin administered as per order. Will continue to monitor.
--- NOTE | 2017-04-29 07:11 | NUR ---
Start of Shift Notes: Received report from night nurse. Alert and oriented x 4. Verbally responsive. Able to make her needs known. Patient stated "I feel like shit, I want to go home." Appears disheveled. 1:1 at bedside. On O2 at 3l/min via NC. Encouraged maintenance of personal hygiene and space. Patient complained of 5/10 generalized pain related to chronic pain. IV to right hand patent and intact. Flushed adequately per unit protocol. Patient is a 66 year old female admitted for ETOH/opiate and BZO withdrawal. She completed her 3-day Ativan taper as ordered. On fall and seizure precautions. Slept for 5 hours. Last COWS 7/CIWA 9. Will continue to monitor and educate patient on the discharge process.
--- NOTE | 2017-04-29 07:15 | NUR ---
PRN Medication Reassessment Patient is noted in bed sleeping. Breathing even and non labored. Patient was given PRN Motrin 600mg for increased pain. No facial grimacing or restlessness noted. Will continue to monitor.
--- NOTE | 2017-04-29 07:17 | NUR ---
End of Shift Patient is in bed sleeping but easily aroused to verbal stimuli. Breathing even and non labored. Patient continues on 1:1 for safety and O2 at 3 liters via NC. Breathing is even and non labored. Patient is alert and oriented x3 with no episodes of confusion noted. IV ATB Therapy of Zosyn continues for PNA with a non productive cough noted. IV site is a 22 gauge to the right hand and is noted to be patent, intact, with no infiltration noted. Patient complains of chronic pain to back and hips with PRN Motrin 400mg and PRN Robaxin administered. New order obtained for PRN Motrin 600mg and was administered with medication noted to be effective. Last noted CIWA 9 and COWS 7. All needs attended to promptly. Will endorse to continue plan of care as ordered.
[2017-04-29 07:40] LABS: BASOPHILS # (AUTO) 0.1 K/uL (0.0-8.0); EOSINOPHILS # (AUTO) 0.2 K/uL (0.0-0.7); EOSINOPHILS % (AUTO) 2.4 % (0.0-7.0); HEMATOCRIT 34.3 % (31.2-41.9); HEMOGLOBIN 10.9 g/dL (10.9-14.3); LYMPHOCYTES # (AUTO) 1.9 K/uL (20.0-40.0); LYMPHOCYTES % (AUTO) 19.7 % (20.5-51.5); MEAN CORPUSCULAR HEMOGLOBIN 26.2 uug (24.7-32.8); MEAN CORPUSCULAR HGB CONC 32 g/dL (32.3-35.6); MEAN CORPUSCULAR VOLUME 82.9 fL (75.5-95.3); MONOCYTES # (AUTO) 1.2 K/uL (2.0-10.0); NEUTROPHILS # (AUTO) 6.4 K/uL (1.8-8.9); NEUTROPHILS % (AUTO) 64.9 % (38.5-71.5); PLATELET COUNT (AUTO) 343 K/uL (179-408); RED BLOOD CELL COUNT(AUTO) 4.14 MIL/uL (3.63-4.92); WHITE BLOOD COUNT (AUTO) 9.8 K/uL (3.8-11.8)
[2017-04-29 08:00] VITALS: BP 122/87
[2017-04-29 08:01] LABS: CREATININE 0.6 mg/dL (0.6-1.3); MAGNESIUM 1.9 mg/dL (1.8-2.4); PHOSPHOROUS 3.9 mg/dL (2.5-4.9); POTASSIUM 4.1 mmol/L (3.5-5.1)
[2017-04-29] MEDS: THIAMINE HCL 100 MG TABLET PO SCH (08:09)
[2017-04-29] MEDS: FOLIC ACID 1 MG TABLET PO SCH (08:09)
[2017-04-29] MEDS: MULTIVITAMINS,THERAPEUTIC TABLET PO SCH (08:09)
[2017-04-29] MEDS: DULOXETINE 60 MG CAPSULE.DR PO SCH (08:09)
[2017-04-29] MEDS: GABAPENTIN 400 MG CAPSULE PO SCH ×2 (08:09→12:09)
[2017-04-29] MEDS: MAGNESIUM CHLORIDE 64 MG TABLET.SA PO SCH (08:09)
[2017-04-29] MEDS: DOCUSATE SODIUM 250 MG CAPSULE PO SCH (08:10)
[2017-04-29] MEDS: METHOCARBAMOL 750 MG TABLET PO PRN (08:10)
[2017-04-29] MEDS: ACYCLOVIR 400 MG TABLET PO SCH ×2 (08:10→12:09)
--- NOTE | 2017-04-29 08:10 | NUR ---
Robaxin 750 mg PO given: Patient complained of 7/10 generalized pain. Patient that it is chronic. Non-pharmacological interventions provided but ineffective. Medicated patient with Robaxin 750 mg PO as ordered. Will monitor for effectiveness.
[2017-04-29] MEDS: ENOXAPARIN SODIUM 40 MG/0.4 ML DISP.SYRIN SQ SCH (08:11)
[2017-04-29] MEDS: LIDOCAINE 5% PATCH TD SCH (08:12)
[2017-04-29] MEDS: BOOST PLUS 237 ML LIQUID (RICH CHOCOLATE) PO SCH (08:15)
--- NOTE | 2017-04-29 09:10 | NUR ---
Re-assessment: Robaxin Patient verbalizes that her pain level is now 2/10. PRN Robaxin was effective.
[2017-04-29] MEDS: CLONIDINE HCL 0.1 MG TABLET PO PRN (09:30)
--- NOTE | 2017-04-29 09:30 | NUR ---
Clonidine 0.1mg PO given: Patient complained of anxiety due to the anticipated discharge. Encouraged patient to verbalize her feelings and concerns. Reassurance provided but did not help. BP 130/70. Medicated patient with Clonidine 0.1mg PO as ordered. Will monitor for effectiveness.
--- NOTE | 2017-04-29 10:30 | NUR ---
Re-assessment: Clonidine Patient verbalizes relief from anxiety. She states "I feel more relaxed now, thank you." Clonidine 0.1mg PO was effective. Will monitor for effectiveness.
[2017-04-29 12:00] VITALS: BP 136/70
--- NOTE | 2017-04-29 12:00 | NUR ---
IV line reinserted: Patient's IV is dislodged and leaking. Patient states "I might have touched it." Reinserted 22g to patient's right hand via aseptic technique. Patient tolerated procedure well. IV site patent and intact. Flushed adequately with no resistance noted.
[2017-04-29] MEDS: GUAIFENESIN LA 600 MG TABLET.SA PO PRN (12:09)
--- NOTE | 2017-04-29 12:09 | NUR ---
Mucinex 1 tab PO given: Patient noted with non-productive cough. No SOB noted. O2 sat at 94% RA. Medicated patient with Mucinex for cough as ordered. Will monitor for effectiveness.
--- NOTE | 2017-04-29 13:09 | NUR ---
Re-assessment: Mucinex Patient verbalizes relief from coughing. PRN Mucinex was effective in relieving cough. O2 sat 95% via RA.
--- NOTE | 2017-04-29 13:37 | NUR ---
IV access discontinued: Patient completed IV ATB therapy of Zosyn. Tolerated well. IV access to right hand removed. Pressure applied to IV site x 2 minutes. No bleeding noted.
--- NOTE | 2017-04-29 13:55 | NUR ---
Discharged: Discharge education provided regarding patient's discharge instructions. Patient verbalized understanding. Denies S/I or H/I noted. No AV hallucinations noted. Alert and oriented x 4. No changes in LOC noted. COWS 5/CIWA 5, due to anxiety. All clothing, medications and valuables were returned to the patient. GENERAL MACHINIST cabinet checked. Cassette checked. All personal belongings returned to the patient. Patient left the unit at this time in stable condition. Escorted off the unit by female GENERAL MACHINIST and picked up by [facility] to be transported to [facility] treatment.
== END 2017-04-29 13:55 | disposition other institution (70) | DRG 895 ==
LOC: SRC 14:36
PROVIDERS: ADMIT Internal Medicine; ATTEND Internal Medicine
PROC: HZ2ZZZZ Detoxification Services for Substance Abuse Treatment (ICD-10-PCS; principal; 2017-04-23)
PROC: HZ31ZZZ Individual Counseling for Substance Abuse Treatment, Behavioral (ICD-10-PCS; 2017-04-25)
DX: F10.239 Alcohol dependence with withdrawal, unspecified (principal); J96.01 Acute respiratory failure with hypoxia; J69.0 Pneumonitis due to inhalation of food and vomit; G92 Toxic encephalopathy; K50.90 Crohn's disease, unspecified, without complications; F11.23 Opioid dependence with withdrawal; Y90.0 Blood alcohol level of less than 20 mg/100 ml; F17.210 Nicotine dependence, cigarettes, uncomplicated; F32.9 Major depressive disorder, single episode, unspecified; K21.9 Gastro-esophageal reflux disease without esophagitis; Z79.899 Other long term (current) drug therapy; M17.12 Unilateral primary osteoarthritis, left knee; G89.29 Other chronic pain; M54.5 Low back pain; I11.9 Hypertensive heart disease without heart failure; E87.6 Hypokalemia; E83.42 Hypomagnesemia; I70.0 Atherosclerosis of aorta; R41.0 Disorientation, unspecified
CPT/HCPCS: 36415; 71045; 80307; 83690; 83735; 84100; 85025; 86592; 86705; 86803; 87340; 87806; 92610; 97116; 97530; A4663; C1758; G0480; J1650; J1940; J2060; J2543; J3475; J3490; J7050; Q0162; Q0163